=== PATIENT | female | born 1960 | race Caucasian/White ===

== ENCOUNTER 2016-07-30 03:08 | Inpatient (IN) | payer OTHER ==
[~2016-07-30] VITALS: Ht 162.6 cm; Wt 53.0 kg
[~2016-07-30 03:08] MED LIST: ATOR40TA68 PO; CHLO25CA9 PO; FER325 PO; FLUO20CA22 PO; HYD25 PO; TRAZ100T15 PO
[2016-07-30] MEDS ORDERED: ASPIRIN 325 MG TAB PO STA (03:50)
[2016-07-30 04:13] LABS: ADD SCAN DIFF NO
[2016-07-30 04:16] LABS: BASOPHIL # 0.1 10^3/ul (0.0-0.1); BASOPHILS % 2.1 % (0.0-2.0); EOSINOPHILS # 0.5 10^3/ul (0.0-0.5); HEMOGLOBIN 11.8 g/dl (12.0-16.0); LYMPHOCYTES # 2.2 10^3/ul (0.8-2.9); MEAN CORPUSCULAR HEMOGLOBIN 28.1 pg (29.0-33.0); MEAN CORPUSCULAR HGB CONC 33.7 g/dl (32.0-37.0); MEAN CORPUSCULAR VOLUME 83.3 fl (82.0-101.0); MEAN PLATELET VOLUME 10.4 fl (7.4-10.4); MONOCYTE # 0.5 10^3/ul (0.3-0.9); MONOCYTES % 7.9 % (0.0-11.0); NEUTROPHIL # 2.6 10^3/ul (1.6-7.5); NEUTROPHILS % 43.8 % (39.0-77.0); PLATELET COUNT 181 10^3/UL (140-415); RED CELL DISTRIBUTION WIDTH 20.3 % (11.5-14.5); WHITE BLOOD COUNT 5.8 10^3/ul (4.8-10.8)
--- NOTE | 2016-07-30 04:20 | RADRPT ---
PROCEDURE: Chest. CLINICAL INDICATION: Chest pain. TECHNIQUE: Single frontal view of the chest was obtained. COMPARISON: None. FINDINGS: The cardiac silhouette is magnified. The aortic arch is unremarkable. There is a nodular density wi thin the right upper lobe measuring 13 x 8 mm. There is no focal consolidation, vascular congestion or pleural effusion. There is no pneumothorax. IMPRESSION: Right upper lobe 13 x 8 mm nodular density. Further evaluation by CT chest is recommended. .Augustus Perez MD, MD Date Time Electronically viewed and signed by .Augustus Perez MD, on 07/30/2016 04:20 .T/
[2016-07-30 04:37] LABS: CHLORIDE 100 mmol/L (97-110); POTASSIUM 3.2 mmol/L (3.5-5.1); SODIUM 148 mmol/L (135-144)
[2016-07-30 04:40] LABS: ANION GAP 25 (8-16); BLOOD UREA NITROGEN 11 mg/dl (7-20); CARBON DIOXIDE 26 mmol/L (21-31); CREATININE 0.43 mg/dl (0.44-1.00); GLUCOSE 100 mg/dl (70-220)
[2016-07-30 04:41] LABS: INR 0.98
[2016-07-30 04:42] LABS: PARTIAL THROMBOPLASTIN TIME 29.3 Sec (25.0-35.0)
[2016-07-30 04:48] LABS: B-TYPE NATRIURETIC PEPTIDE 73 PG/ML (0-125)
[2016-07-30 04:54] LABS: TROPONIN-I < 0.012 ng/ml (0.00-0.12)
[2016-07-30] MEDS ORDERED: LIDOCAINE/MYLANTA 40 ML BTL PO ONE (05:00)
[2016-07-30] MEDS ORDERED: SOD CHLORIDE 0.9% 1,000 ML IV ONE (05:00)
[2016-07-30] MEDS ORDERED: POTASSIUM CHLORIDE (SR) 20 MEQ TAB PO STA (05:23)
[2016-07-30] MEDS ORDERED: NITROGLYCERIN (SL) 0.4 MG TAB SL ONE ×2 (05:30→06:00)
--- NOTE | 2016-07-30 06:13 | ERA ---
ER Documentation Chief Complaint Date/Time DATE: 07/30/16 TIME: 06:10 Chief Complaint Chest pain started at 0130. Radiating to the arms HPI 55-year-old female presents with left-sided pressure-like chest pain that awoke her from sleep at 01 30. Pain radiates down her left arm. She also has shortness of breath. She denies any nausea. States that she has not had pain like this. In the past she has had chest pain that was less than this resolved on palpation. States that his pain is much worse. She knows she has hypertension but is not sure if she has cholesterol diabetes because she does not see doctors. She has never had a cardiac workup of any kind. She has not tried taking anything for the pain. ROS All systems reviewed and are negative except as per history of present illness. Medications Home Meds Active Scripts Chlordiazepoxide* (Chlordiazepoxide*) 25 Mg Capsule, 25 MG PO Q8 Y for CONTROL WITHDRAWAL SYMPTOMS, #15 CAP Prov:LIOC RIDDLE MD 11/19/15 Reported Medications Atorvastatin* (Atorvastatin*) 40 Mg Tablet, 40 MG PO QHS, #30 TAB 11/19/15 Hydrochlorothiazide* (Hydrochlorothiazide*) 25 Mg Tab, 25 MG PO DAILY, #30 TAB 11/19/15 Ferrous Sulfate* (Ferrous Sulfate*) 325 Mg Tabec, 325 MG PO DAILY, TAB 11/19/15 Trazodone Hcl* (Trazodone Hcl*) 100 Mg Tablet, 100 MG PO QHS, #30 TAB 11/19/15 Fluoxetine Hcl* (Fluoxetine Hcl*) 20 Mg Capsule, 20 MG PO TID, CAP 11/19/15 Allergies Allergies: Coded Allergies: No Known Allergy (Unverified , 11/19/15) PMhx/Soc Medical and Surgical Hx: pt denies Surgical Hx History of Surgery: No Anesthesia Reaction: No Hx Neurological Disorder: No Hx Respiratory Disorders: No Hx Cardiac Disorders: Yes (HTN, HYPERLIPEDEMIA) Hx Psychiatric Problems: Yes (DEPRESSION, HALLUCINATIONS) Hx Miscellaneous Medical Probl: Yes (EtOH abuse, non-compliance) Hx Alcohol Use: Yes ("a few beers every weekend") Hx Substance Use: No Hx Tobacco Use: No Smoking Status: Never smoker Physical Exam Vitals Vital Signs Date Time Temp Pulse Resp B/P Pulse Ox O2 Delivery O2 Flow Rate FiO2 07/30/16 05:32 87 22 115/90 100 Nasal Cannula 2.0 07/30/16 04:07 80 22 125/80 100 Nasal Cannula 2.0 07/30/16 04:07 Nasal Cannula 2 07/30/16 03:14 98.6 94 20 145/95 96 Physical Exam Const: [] Mild distress, appears uncomfortable holding left chest Head: Atraumatic Eyes: Normal Conjunctiva ENT: Normal External Ears, Nose and Mouth. Neck: Full range of motion..~ No meningismus. Resp: Clear to auscultation bilaterally Cardio: Regular rate and rhythm, no murmurs Abd: Soft, non tender, non distended. Normal bowel sounds Skin: No petechiae or rashes Ext: No cyanosis, or edema Neur: Awake and alert and oriented 3, no focal deficits Psych: Normal Mood and Affect Result Diagram: 07/30/16 0345 07/30/16 0356 Results 24 hrs Laboratory Tests Test 07/30/16 03:45 07/30/16 03:56 White Blood Count 5.810^3/ul Red Blood Count 4.2010^6/ul Hemoglobin 11.8g/dl Hematocrit 35.0% Mean Corpuscular Volume 83.3fl Mean Corpuscular Hemoglobin 28.1pg Mean Corpuscular Hemoglobin Concent 33.7g/dl Red Cell Distribution Width 20.3% Platelet Count 58597^3/UL Mean Platelet Volume 10.4fl Neutrophils % 43.8% Lymphocytes % 38.0% Monocytes % 7.9% Eosinophils % 8.0% Basophils % 2.1% Nucleated Red Blood Cells % 0.0/100WBC Neutrophils # 2.610^3/ul Lymphocytes # 2.210^3/ul Monocytes # 0.510^3/ul Eosinophils # 0.510^3/ul Basophils # 0.110^3/ul Nucleated Red Blood Cells # 0.010^3/ul Prothrombin Time 13.0Sec Prothrombin Time Ratio 1.0 INR International Normalized Ratio 0.98 Activated Partial Thromboplast Time 29.3Sec Sodium Level 148mmol/L Potassium Level 3.2mmol/L Chloride Level 100mmol/L Carbon Dioxide Level 26mmol/L Anion Gap 25 Blood Urea Nitrogen 11mg/dl Creatinine 0.43mg/dl Glucose Level 100mg/dl Calcium Level 10.0mg/dl Troponin I < 0.012ng/ml B-Type Natriuretic Peptide 73PG/ML Current Medications Medications (Trade) Dose Ordered Sig/Jessa Route PRN Reason Start Time Stop Time Status Last Admin Dose Admin Aspirin (Aspirin) 325 mg ONCE STAT PO 07/30/16 03:50 07/30/16 03:51 DC 07/30/16 03:57 Miscellaneous Medication 40 ml 40 ml ONCE ONCE PO 07/30/16 05:00 07/30/16 05:01 DC 07/30/16 04:49 Sodium Chloride (NS) 1,000 ml @ 1,000 mls/hr Q1H ONCE IV 07/30/16 05:00 07/30/16 05:59 DC 07/30/16 04:50 Nitroglycerin (Nitroglycerin (Sl Tab) 0.4 Mg) 1 tab ONCE ONCE SL 07/30/16 05:30 07/30/16 05:31 DC 07/30/16 05:31 Potassium Chloride (Klor-Con 20) 40 meq ONCE STAT PO 07/30/16 05:23 07/30/16 05:27 DC 07/30/16 05:30 Nitroglycerin (Nitroglycerin (Sl Tab) 0.4 Mg) 1 tab ONCE ONCE SL 07/30/16 06:00 07/30/16 06:01 DC 07/30/16 05:53 Procedures/MDM Chest pain with concern for acute coronary syndrome. Although EKG is nonischemic patient has a negative troponin she has a different type of chest pain she has ever had that radiates down her left arm and was only lessened by nitroglycerin. First night she took the pain down to a 7 the next 1 to get down to a 3 though she does have ongoing chest pain I believe she would benefit from a admission for further cardiac testing as she believes she is unlikely to follow-up as an outpatient because she does not like doctors. Spoke with Dr. Santo, who will admit the patient for observation cardiac rule out. EKG interpretation: Normal sinus rhythm rate of 87, normal axis, no ST or T- wave changes concerning for acute ischemia, normal intervals gas operator interpretation: Normal sinus rhythm without arrhythmia Chest x-ray interpretation: I see no acute process, no widened mediastinum, no pneumothorax, no infiltrates, no fractures Departure Diagnosis: Primary Impression: Chest pain Condition: Stable ERICKPRADIP DO July 30, 2016 06:13
[2016-07-30] MEDS ORDERED: ACETAMINOPHEN 325 MG TAB PO PRN (06:30)
[2016-07-30] MEDS ORDERED: ONDANSETRON 4 MG INJ IV PRN (06:30)
[2016-07-30] MEDS ORDERED: NITROGLYCERIN (SL) 0.4 MG TAB SL PRN ×2 (08:30)
[2016-07-30] MEDS ORDERED: LORAZEPAM 2 MG INJ IV PRN (08:30)
[2016-07-30] MEDS ORDERED: NACL 0.9% 3 ML SYG IV SCH (08:30)
[2016-07-30] MEDS: ACETAMINOPHEN 325 MG TAB PO PRN ×2 (09:10→20:22)
[2016-07-30 11:09] LABS: CREATINE KINASE 67 IU/L (23-200)
[2016-07-30 11:32] LABS: TROPONIN-I < 0.012 ng/ml (0.00-0.12)
[2016-07-30] MEDS: ASPIRIN 81 MG TAB PO SCH (14:18)
[2016-07-30 16:22] LABS: CREATINE KINASE 75 IU/L (23-200)
[2016-07-30 16:28] LABS: CK-MB 0.59 ng/ml (0.0-2.4)
[2016-07-30 16:32] LABS: TROPONIN-I < 0.012 ng/ml (0.00-0.12)
[2016-07-30 17:59] VITALS: TEMP 98.2
[2016-07-30 18:22] VITALS: PULSE 80
[2016-07-30 18:27] VITALS: Ht 162.6 cm; Wt 53.0 kg
[2016-07-30 18:33] VITALS: BP 148/100; PULSE 78
[2016-07-30] MEDS: morphine 2 MG INJ IV PRN (18:56)
[2016-07-30 20:23] VITALS: PULSE 85
[2016-07-30 20:47] VITALS: BP 128/83; RESP 16
[2016-07-31] VITALS (10 sets, daily range): BP systolic 110–153; BP diastolic 65–88; PULSE 75–90; RESP 16
--- NOTE | 2016-07-31 06:56 | CONS ---
DATE OF ADMISSION: 07/30/2016 DATE OF CONSULTATION: 07/30/2016 CARDIOLOGY CONSULTATION REFERRING PHYSICIAN: ____ REASON FOR CONSULTATION: Chest pain. CHIEF COMPLAINT: Chest pain. HISTORY OF PRESENT ILLNESS: Thank you for this referral. History obtained from the patient, josef santo with ____. A 55-year-old female with history of hypertension, noncompliance, depression, t aking no cardiac medications, who presented with above complaint. Patient has had on and off chest pain, left-sided, for a while, but last night got worse, severe left-sided pressure-like. She point s to around her shoulder but going also to the left side of the chest. The pain has improved now, h as not resolved completely now. Troponin have been negative x2. PAST MEDICAL HISTORY: History of hypertension, possible dyslipidemia, history of depression. SOCIAL HISTORY: Patient denies active tobacco or drug abuse to me. FAMILY HISTORY: No reported coronary artery disease. ALLERGIES: NO REPORTED ALLERGIES. MEDICATIONS AT HOME: She takes "some depression medication," otherwise, does not take any blood pre ssure medication. REVIEW OF SYSTEMS: As above mentioned. PHYSICAL EXAMINATION: VITAL SIGNS: Temperature 98.6, heart rate 85, blood pressure ____/100, respiration rate of 16, satu rating 98%. HEENT: Normocephalic, atraumatic. Pupils are equal. CARDIOVASCULAR: Regular rate and rhythm, systolic murmur. PULMONARY: With no wheezes and rhonchi. GASTROINTESTINAL: Soft, nontender. EXTREMITIES: No cyanosis, clubbing ____. NEUROLOGIC: Awake and alert, oriented x3. PSYCHIATRIC: Appeared to be calm now. LABORATORY: Troponin has been negative x2. WBC of 5.8, hemoglobin 11.8, platelet 181, sodium 148, potassium 3.2, BUN of 11, creatinine 0.42, glucose 100. BNP of 73. Chest x-ray was right upper lob e nodular density, further evaluation by CTA is recommended. EKG was personally reviewed, she is normal sinus rhythm with nonspecific ST abnormality anterior carlos ds. ASSESSMENT AND PLAN 1. Chest pain syndrome, rule acute coronary syndrome. 2. Hypertension, poorly controlled secondary to noncompliance. 3. Rule out dyslipidemia. 4. History of depression. 5. Pulmonary nodule. RECOMMENDATIONS: Echocardiogram will be obtained today. Serial cardiac enzymes will be monitored. The patient has been already given aspirin. I will start the patient on Coreg. I have ordered Sherwin iscan stress test for tomorrow to rule out significant obstructive coronary artery if cardiac enzyme s become repeatedly negative. Dr. Reaves will follow the patient tomorrow from a cardiac standpoint . Dictated By: MIKE HUGHES MD AV/NTS Conf#: [id number] DID#: [id number] CC: OTF LOMAX MD;*EndCC*
--- NOTE | 2016-07-31 07:01 | HP ---
DATE OF ADMISSION: 07/30/2016 CHIEF COMPLAINT: Chest pain. HISTORY OF PRESENT ILLNESS: A 55-year-old female with history of hypertension, presents to emergenc y room with complaint of left sided chest pressure radiating to the left arm since 9:00 in the [facility] prior to admission. Pain was 8/10 and lasted for about 5 hours. She reports associated shortnes s of breath and ____. No vomiting. She had some diaphoresis. The patient denies exertional sympto ms. Pain was relieved following nitroglycerin in the emergency room. Initial troponin and EKG were unremarkable. The patient is scared of physicians and hospital. She has seen any physician as outpatient. She ap peared anxious at the time of my visit. PAST MEDICAL HISTORY: Hypertension. MEDICATIONS PRIOR TO ADMISSION: None. SOCIAL HISTORY: The patient lives at home. She denies tobacco or alcohol use. PHYSICAL EXAMINATION: GENERAL: Well developed and nourished female who is in no apparent distress. VITAL SIGNS: Stable. She is afebrile. HEENT: Extraocular muscles intact. Pupils equal and reactive to light bilaterally. Sclerae anicte cinthya. Oropharynx is clear and moist. NECK: Supple. No JVD, no carotid bruits. LUNGS: Clear to auscultation bilaterally. CARDIAC: Regular rate and rhythm. No murmurs or gallops. CHEST: Nontender to palpation. ABDOMEN: Soft, nontender, nondistended. Normoactive bowel sounds. EXTREMITIES: No clubbing, cyanosis, or edema. NEUROLOGIC: Nonfocal. LABORATORY DATA: White blood cell count 5.8, hemoglobin 11.8, platelet count is 181,000. Potassium is low at 3.2. Troponins are less than 0.012 x2. ASSESSMENT: A 55-year-old female with acute chest pain. There are typical and atypical components to the pain. The decision was made to admit the patient to observation since she may not follow up with cardiology as outpatient. PLAN: 1. Place on tele observation. 2. Serial troponins. 3. Sublingual nitroglycerin as needed. 4. Cardiology consultation was requested and case was discussed with Dr. Erickson. 5. Proceed with stress Lexiscan in a.m. 6. DVT prophylaxis. Dictated By: OTF KIM/BROCK Conf#: [id number] [facility]#: [id number]
[2016-07-31] MEDS: ASPIRIN 81 MG TAB PO SCH (08:04)
[2016-07-31] MEDS: morphine 2 MG INJ IV PRN (08:36)
[2016-07-31 09:38] LABS: ADD SCAN DIFF NO
[2016-07-31 09:40] LABS: BASOPHIL # 0.1 10^3/ul (0.0-0.1); BASOPHILS % 1.5 % (0.0-2.0); EOSINOPHILS # 0.5 10^3/ul (0.0-0.5); EOSINOPHILS % 7.8 % (0.0-7.0); HEMATOCRIT 33.9 % (37.0-47.0); HEMOGLOBIN 10.9 g/dl (12.0-16.0); LYMPHOCYTES # 1.2 10^3/ul (0.8-2.9); LYMPHOCYTES % 20.7 % (15.0-51.0); MEAN CORPUSCULAR HEMOGLOBIN 27.3 pg (29.0-33.0); MEAN CORPUSCULAR HGB CONC 32.2 g/dl (32.0-37.0); MEAN CORPUSCULAR VOLUME 84.8 fl (82.0-101.0); MEAN PLATELET VOLUME 9.7 fl (7.4-10.4); MONOCYTE # 0.8 10^3/ul (0.3-0.9); MONOCYTES % 13.4 % (0.0-11.0); NEUTROPHIL # 3.3 10^3/ul (1.6-7.5); NEUTROPHILS % 56.4 % (39.0-77.0); PLATELET COUNT 175 10^3/UL (140-415); RED CELL DISTRIBUTION WIDTH 20.6 % (11.5-14.5); WHITE BLOOD COUNT 5.9 10^3/ul (4.8-10.8)
[2016-07-31 10:15] LABS: CREATINE KINASE 56 IU/L (23-200)
[2016-07-31 10:17] LABS: ALBUMIN 4.4 g/dl (3.3-4.9); ALBUMIN/GLOBULIN RATIO 1.37; BILIRUBIN,INDIRECT 0.2 mg/dl (0-1.1); BILIRUBIN,TOTAL 0.2 mg/dl (0.2-1.3); CALCIUM 9.8 mg/dl (8.4-10.2); CREATININE 0.4 mg/dl (0.44-1.00); POTASSIUM 3.5 mmol/L (3.5-5.1); TOTAL PROTEIN 7.6 g/dl (6.1-8.1)
[2016-07-31 10:38] LABS: CHOL/HDL RATIO 3.1 RATIO
[2016-07-31 10:39] LABS: TROPONIN-I < 0.012 ng/ml (0.00-0.12)
--- NOTE | 2016-07-31 11:24 | PN ---
Date/Time of Note Date/Time of Note DATE: 07/31/16 TIME: 11:11 Assessment/Plan VTE Prophylaxis VTE Prophylaxis Intervention: SCD's Lines/Catheters IV Catheter Type (from Nrsg): Saline Lock Assessment/Plan Assessment/Plan 55-year-old female with: 1. Chest pain, likely atypical Cardiac enzymes negative x 4, 2D echo done and reading pending. Bblock, BP control, statins resumed Stress test pending this AM, if negative d/c plan home 2. Hypertension: start B block today, further recs per Cardio post stress test 3. Hyperlipidemia: resume Lipitor 4. MDD: resume home meds at discharge 5. RUL pulmonary Nodule: CT chest non con pending. Prophylaxis: SCDs and tolerating po. Disposition: Stress test today and d/c plan pending results Subjective 24 Hr Interval Summary Free Text/Dictation Patient doing well No chest pain and awaiting stress test this AM CT Chest to evaluate RUL lesion Exam/Review of Systems Vital Signs Vitals Vital Signs Date Time Temp Pulse Resp B/P Pulse Ox O2 Delivery O2 Flow Rate FiO2 07/31/16 11:06 98.0 83 16 153/86 97 07/30/16 18:33 Room Air 07/30/16 13:28 2.0 Intake and Output 07/30/16 07/30/16 07/31/16 14:59 22:59 06:59 Intake Total 400 ml Balance 400 ml Exam Constitutional: alert, oriented, well developed Cardiovascular: nl pulses, regular rate and rhythm Gastrointestinal: non-tender, soft Musculoskeletal: nl extremities to inspection Extremities: normal pulses, other (no edema, clubbing or cyanosis ) Neurological: NURSE INFORMATICS EDUCATOR II-XII intact, nl mental status, nl speech, nl strength Results Result Diagram: 07/31/1618 07/31/1618 Results 24 hrs Laboratory Tests Test 07/30/16 15:50 07/31/16 09:18 Creatine Kinase 75 56 Creatine Kinase Index 0.8 0.7 Creatinine Kinase MB (Mass) 0.59 0.40 Troponin I < 0.012 < 0.012 White Blood Count 5.9 Red Blood Count 4.00 L Hemoglobin 10.9 L Hematocrit 33.9 L Mean Corpuscular Volume 84.8 Mean Corpuscular Hemoglobin 27.3 L Mean Corpuscular Hemoglobin Concent 32.2 Red Cell Distribution Width 20.6 H Platelet Count 175 Mean Platelet Volume 9.7 Neutrophils % 56.4 Lymphocytes % 20.7 Monocytes % 13.4 H Eosinophils % 7.8 H Basophils % 1.5 Nucleated Red Blood Cells % 0.0 Neutrophils # 3.3 Lymphocytes # 1.2 Monocytes # 0.8 Eosinophils # 0.5 Basophils # 0.1 Nucleated Red Blood Cells # 0.0 Sodium Level 139 Potassium Level 3.5 Chloride Level 101 Carbon Dioxide Level 26 Anion Gap 16 # Blood Urea Nitrogen 9 Creatinine 0.40 L Glucose Level 94 Calcium Level 9.8 Total Bilirubin 0.2 Direct Bilirubin 0.00 Indirect Bilirubin 0.2 Aspartate Amino Transf (AST/SGOT) 72 H Alanine Aminotransferase (ALT/SGPT) 48 Alkaline Phosphatase 145 H Total Protein 7.6 Albumin 4.4 Globulin 3.20 Albumin/Globulin Ratio 1.37 Triglycerides Level 95 Cholesterol Level 332 H LDL Cholesterol, Calculated 208 HDL Cholesterol 105 H Cholesterol/HDL Ratio 3.1 Medications Medications Current Medications Lorazepam (Ativan) 0.5 mg Q6H PRN IV ANXIETY; Start 07/30/16 at 08:30 Aspirin (Aspirin) 81 mg DAILY PO Last administered on 07/30/16 14:18; Admin Dose 81 MG; Start 07/30/16 at 09:00 Nitroglycerin (Nitroglycerin (Sl Tab) 0.4 Mg) 1 tab Q5M PRN SL CHEST PAIN; Start 07/30/16 at 08:30 Acetaminophen (Tylenol Tab) 650 mg Q6H PRN PO PAIN LEVEL 1-3 OR FEVER Last administered on 07/30/16 20:22; Admin Dose 650 MG; Start 07/30/16 at 08:30 Morphine Sulfate (morphine) 2 mg Q4H PRN IV PAIN LEVEL 7-10 Last administered on 07/31/16 08:36; Admin Dose 2 MG; Start 07/30/16 at 08:30 JUANCARLOS HEIN July 31, 2016 11:21
[2016-07-31] MEDS ORDERED: METOPROLOL 25 MG TAB PO SCH (11:30)
[2016-07-31] MEDS ORDERED: REGADENOSON 0.4 MG/5 ML SYG ONE (13:28)
--- NOTE | 2016-07-31 14:01 | RADRPT ---
Echocardiogram Report Patient Name: HERI BURTON Gender: Female Date: 1960 Study Date: 30-Jul-2016 Beam Department Supervisor: Patt [facility] Location: [facility] Ref. Physician: MIKE HUGHES Quality: Adequate Procedures: Transthoracic echocardiogram with complete 2D, M-Mode, and doppler examination. Indications: Chest Pain. 2D/M Mode Doppler Measurement Value Normal Ranges Measurement Value Normal Ranges LVIDd 2D 4.0 3.5 - 5.6 cm AV Peak Adam 1.2 m/sec LVIDs 2D 2.6 2.1 - 4.1 cm AV Peak PG 6.0 mmHg LVPWd 2D 1.0 0.6 - 1.1 cm LVOT Peak Adam 0.9 m/sec IVSd 2D 1.0 0.6 - 1.1 cm LVOT Peak PG 3.0 mmHg AoR Diam 2D 2.3 2.0 - 3.7 cm MV E Peak Adam 0.7 m/sec EDV 2D 69.2 cm3 MV A Peak Adam 0.9 m/sec ESV 2D 18.4 cm3 MV E/A 0.8 LA Dimen 2D 4.2 2.3 - 4.0 cm MV Decel Time 183 msec MV Decel [place] 4 MV E/A 0.8 TR Peak Adam 2.8 m/sec TR Peak PG 31.5 mmHg RVSP 40.0 mmHg Findings Left Ventricle: Normal left ventricular systolic function. Normal left ventricular cavity size. Normal left ventricular wall thickness. Ejection fraction is visually estimated at 60 %. Tissue Doppler/Mitral Doppler indices are consistent with impaired relaxation (Stage I diastolic dysfunction). Right Ventricle: Normal right ventricular size. Normal right ventricular systolic function. Left Atrium: There is mild enlargement of left atrium. Right Atrium: Right atrium at upper limits of normal. Mitral Valve: Mild mitral leaflet calcification. Mild mitral annular calcification. Trace mitral regurgitation. Aortic Valve: Normal appearance of the aortic valve. No significant aortic stenosis or insufficiency. Tricuspid Valve: Normal appearance and function of the tricuspid valve with trace physiologic regurgitation. Estimated peak PA systolic pressure 40 mmHg. Pulmonic Valve: Pulmonic valve not well visualized. There is trace pulmonic regurgitation. Pericardium: Normal pericardium with no significant pericardial effusion. Aorta: Normal aortic root. IVC: Dilated IVC with respiratory collapse consistent with elevated right atrial pressure. Conclusions 1.Normal left ventricular systolic function. Normal left ventricular cavity size. Normal left ventricular wall thickness. Ejection fraction is visually estimated at 60 %. Tissue Doppler/Mitral Doppler indices are consistent with impaired relaxation (Stage I diastolic dysfunction). 2.Normal right ventricular size. Normal right ventricular systolic function. 3.There is mild enlargement of left atrium. 4.Right atrium at upper limits of normal. 5.No significant valvular stenosis or regurgitation seen. 6.Normal pericardium with no significant pericardial effusion. Electronically Signed By: Ethan Reaves 31-Jul-2016 14:00:00 Patient Name: HERI UBRTON Study Date: 30-Jul-2016 [id number]
--- NOTE | 2016-07-31 14:10 | PDOCDIS ---
Discharge Instructions CONDITION Patient Condition: Stable HOME CARE INSTRUCTIONS: Special Diet: cardiac ACTIVITY: Activity Restrictions: No Restrictions FOLLOW UP/APPOINTMENTS Appointments Follow up with PCP within 1 week Follow up with Cardiology within 2 to [address] chest non contrast to monitor RUL small nodules in 6 months JUANCARLOS HEIN July 31, 2016 14:10
[2016-07-31] MEDS ORDERED: METO-448 PO (14:11)
--- NOTE | 2016-07-31 16:19 | RADRPT ---
PROCEDURE: Lexiscan myocardial perfusion study CLINICAL INDICATION: 55 -year-old patient complaining of chest pain. TECHNIQUE: Lexiscan 0.4 mg intravenously separate acquisition gated myocardial perfusion SPECT usi ng Tc 99m Myoview 27.2 mCi intravenously at stress and Tc-99m Myoview, 9.5 mCi intravenously at rest was performed using the rest/stress sequence. Poststress Myoview SPECT images were obtained in the supine position. COMPARISON: No prior studies. FINDINGS: Perfusion images reveal a small size mild in degree reversible perfusion abnormality in the distal i nferior wall. Lexiscan post stress gated SPECT images demonstrate no wall motion abnormalities. IMPRESSION: 1. The type and distribution of the scintigraphic abnormalities are most consistent with a small re versible perfusion defect in the distal inferior wall. 2. No wall motion abnormalities. 3. The left ventricle ejection fraction at stress is greater than 70%. A call report was made to Dr. Reaves at 04:16 p.m. on July 31, 2016. RPTAT: HH .Sosa Floyd MD, MD Date Time Electronically viewed and signed by .Sosa Floyd MD, MD on 07/31/2016 16:19 .L/
--- NOTE | 2016-07-31 16:45 | CONS ---
Date/Time of Note Date/Time of Note DATE: 07/31/16 TIME: 16:42 Assessment/Plan Assessment/Plan Additional Assessment/Plan Chest and shoulder pain Preserved ejection fraction Hypertension Dyslipidemia -Patient with pain elicited with left arm movements. Pain is not exacerbated by exertion. Patient denies any further symptoms. Serial cardiac enzymes are negative. Nuclear stress test with possible small distal inferior area of ischemia. Would recommend aggressive medical management with aspirin, statin and beta-jesús as heart rate and blood pressure permits. Consultation Date/Type/Reason Admit Date/Time July 30, 2016 at 06:09 Initial Consult Date Type of Consultation: cv 24 HR Interval Summary Free Text/Dictation Denies any further symptoms of chest pain. Denies shortness of breath, dizziness. Chest pain was in shoulder which brought patient to hospital. Pain exacerbated with arm movements Exam/Review of Systems Vital Signs Vitals Vital Signs Date Time Temp Pulse Resp B/P Pulse Ox O2 Delivery O2 Flow Rate FiO2 07/31/16 16:23 76 07/31/16 15:50 97.8 16 139/88 96 07/30/16 18:33 Room Air 07/30/16 13:28 2.0 Intake and Output 07/30/16 07/30/16 07/31/16 15:00 23:00 07:00 Intake Total 400 ml Balance 400 ml Exam No apparent distress Constitutional: alert, oriented Head: normocephalic Neck: supple Respiratory: other (Coarse breath sounds bilaterally, no wheezing) Cardiovascular: other (S1-S2 heard), regular rate and rhythm Gastrointestinal: bowel sounds, non-tender, soft Extremities: other (No edema) Results Result Diagram: 07/31/1618 07/31/1618 Results 24 hrs Laboratory Tests Test 07/31/16 09:18 White Blood Count 5.9 Red Blood Count 4.00 L Hemoglobin 10.9 L Hematocrit 33.9 L Mean Corpuscular Volume 84.8 Mean Corpuscular Hemoglobin 27.3 L Mean Corpuscular Hemoglobin Concent 32.2 Red Cell Distribution Width 20.6 H Platelet Count 175 Mean Platelet Volume 9.7 Neutrophils % 56.4 Lymphocytes % 20.7 Monocytes % 13.4 H Eosinophils % 7.8 H Basophils % 1.5 Nucleated Red Blood Cells % 0.0 Neutrophils # 3.3 Lymphocytes # 1.2 Monocytes # 0.8 Eosinophils # 0.5 Basophils # 0.1 Nucleated Red Blood Cells # 0.0 Sodium Level 139 Potassium Level 3.5 Chloride Level 101 Carbon Dioxide Level 26 Anion Gap 16 # Blood Urea Nitrogen 9 Creatinine 0.40 L Glucose Level 94 Calcium Level 9.8 Total Bilirubin 0.2 Direct Bilirubin 0.00 Indirect Bilirubin 0.2 Aspartate Amino Transf (AST/SGOT) 72 H Alanine Aminotransferase (ALT/SGPT) 48 Alkaline Phosphatase 145 H Creatine Kinase 56 Creatine Kinase Index 0.7 Creatinine Kinase MB (Mass) 0.40 Troponin I < 0.012 Total Protein 7.6 Albumin 4.4 Globulin 3.20 Albumin/Globulin Ratio 1.37 Triglycerides Level 95 Cholesterol Level 332 H LDL Cholesterol, Calculated 208 HDL Cholesterol 105 H Cholesterol/HDL Ratio 3.1 Medications Medications Current Medications Lorazepam (Ativan) 0.5 mg Q6H PRN IV ANXIETY; Start 07/30/16 at 08:30 Aspirin (Aspirin) 81 mg DAILY PO Last administered on 07/30/16 14:18; Admin Dose 81 MG; Start 07/30/16 at 09:00 Nitroglycerin (Nitroglycerin (Sl Tab) 0.4 Mg) 1 tab Q5M PRN SL CHEST PAIN; Start 07/30/16 at 08:30 Acetaminophen (Tylenol Tab) 650 mg Q6H PRN PO PAIN LEVEL 1-3 OR FEVER Last administered on 07/30/16 20:22; Admin Dose 650 MG; Start 07/30/16 at 08:30 Morphine Sulfate (morphine) 2 mg Q4H PRN IV PAIN LEVEL 7-10 Last administered on 07/31/16 08:36; Admin Dose 2 MG; Start 07/30/16 at 08:30 Atorvastatin Calcium (Lipitor) 40 mg QHS PO ; Start 07/31/16 at 21:00 Ferrous Sulfate (Ferrous Sulfate (Ec)) 325 mg DAILY PO ; Start 08/01/16 at 09:00 Trazodone HCl (Desyrel) 100 mg QHS PO ; Start 07/31/16 at 21:00 Metoprolol Tartrate (Lopressor) 25 mg BID PO ; Start 07/31/16 at 11:30 Ethan Reaves DO July 31, 2016 16:45
--- NOTE | 2016-07-31 16:55 | RADRPT ---
PROCEDURE: CT Chest without contrast. CLINICAL INDICATION: Nodular density on the chest x-ray. Chest pain. TECHNIQUE: CT scan of the chest without contrast was performed on a multidetector high-resolution CT scanner. Coronal and sagittal reformatted images were obtained from the axial source images. The total exam CTDI equals 7.87 mGy and the total exam DLP equals 293.46 mGy-cm. One or more of the following dose reduction techniques were used: Automated exposure control. Adjustment of the mA and/or kV according to patient size. Use of iterative reconstruction technique. COMPARISON: Chest x-ray 07/30/2016 FINDINGS: There are several ill-defined ground-glass nodules in the posterior right upper lobe and superior s egment of the left lower lobe in keeping with infectious/inflammatory nodules. No focal opacificatio n, effusion, pneumothorax, edema, or nodules are seen. There is no pulmonary infiltrate. No mass l esion to suggest neoplasm is identified. The central tracheobronchial tree is clear. The mediastinum is unremarkable without evidence for mass or lymphadenopathy. The vascular structur es of the mediastinum are normal in course and caliber. Scattered coronary artery calcifications ar e present. The heart size is normal without evidence for pericardial thickening or effusion. The axillary regions, subpectoral regions, and supraclavicular regions are all unremarkable. Imagin g obtained through the upper abdomen reveals fatty infiltration of the liver. There are numerous vincent b centimeter calcified gallstones. The surrounding osseous structures are remarkable for degenerati ve spondylosis of the spine. No osteolytic or osteoblastic lesion is detected. IMPRESSION: 1. Several ill-defined ground-glass nodules measures up to 1 cm in the posterior right upper lobe a nd superior segment of the left lower lobe most consistent with infectious/inflammatory nodules. Re commend CT chest follow-up in 6 months to ensure resolution. 2. Scattered coronary artery calcifications. 3. Fatty liver. 4. Cholelithiasis. RPTAT: BB .Cici Queen MD, Date Time Electronically viewed and signed by .Cici Queen MD, on 07/31/2016 16:54 .O/
[2016-07-31] MEDS ORDERED: ATOR40TA68 PO (17:08)
[2016-07-31] MEDS ORDERED: ASPI-664 PO (17:08)
[2016-07-31] MEDS ORDERED: ATORVASTATIN 40 MG TAB PO SCH (21:00)
[2016-07-31] MEDS ORDERED: traZODone 100 MG TAB PO SCH (21:00)
--- NOTE | 2016-07-31 21:04 | CARRPT ---
DATE OF PROCEDURE: 07/31/2016 PROCEDURES: Lexiscan/nuclear stress test PATIENT HISTORY: This then is a 55-year-old patient who presents with chest pain. Baseline ECG demonstrates sinus rhythm at 78 beats per minute, nonspecific ST-T wave abnormalities. Baseline heart rate was 78. Baseline blood pressure was 135/87. Lexiscan was administered as per protocol. Peak heart rate was 107. Peak blood pressure was 143/88. Symptoms were abdominal discomfort, which resolved. ECG demonstrated T-wave flattening. ARRHYTHMIAS: None. ECG interpretation was nonischemic. The nuclear portion will be interpreted by our radiology colleagues. Dictated By: SYBIL AMIN/BROCK Conf#: [id number] DID#: [id number] CC: OTF LOMAX MD;*EndCC*
[2016-08-01] MEDS ORDERED: FERROUS SULFATE (EC) 325 MG TAB PO SCH (09:00)
== END 2016-07-31 18:44 | disposition home or self-care (01) | DRG 313 ==
LOC: E/R 03:08 → TEL 06:09
PROVIDERS: ADMIT Internal Medicine; ATTEND Internal Medicine
DX: R07.9 Chest pain, unspecified (principal); I10 Essential (primary) hypertension; Z91.14 Patient's other noncompliance with medication regimen; E78.5 Hyperlipidemia, unspecified; F32.9 Major depressive disorder, single episode, unspecified; R91.1 Solitary pulmonary nodule; M25.512 Pain in left shoulder
CPT/HCPCS: 36415; 71010; 71250; 78452; 80048; 80053; 80061; 82550; 82553; 83880; 84484; 85025; 85610; 85730; 93005; 93017; 93306; 96360; A9500; A9505; J2270; J2785; J7030

== ENCOUNTER 2016-09-21 12:30 | Emergency (ER) | payer OTHER ==
[~2016-09-21] VITALS: Ht 157.5 cm; Wt 52.5 kg
[~2016-09-21 12:30] MED LIST changes: +ASPI-664 PO; -CHLO25CA9 PO; -HYD25 PO; +METO-448 PO
[2016-09-21 12:32] VITALS: Ht 157.5 cm; Wt 52.5 kg
[2016-09-21] MEDS ORDERED: IBUPROFEN 800 MG TAB PO ONE (13:30)
[2016-09-21] MEDS ORDERED: IBUP-1542 PO (13:30)
--- NOTE | 2016-09-21 14:20 | ERD ---
ER Documentation Chief Complaint Date/Time DATE: 09/21/16 TIME: 14:18 Chief Complaint Complains of arm pain that radiates from the chest HPI Patient is a 56-year-old female with anxiety and hypertension who presents with chest pain. The symptoms started 12 hours ago. She says "it is always on the side". She said the pain radiates from her neck down to her left arm. She admits to drinking alcohol today and said that she had "half an ounce". The patient was admitted and had a workup for chest pain in July 2016. She does not know the name of her primary doctor. Upon review of old medical record she has multiple visits to the ER. ROS All systems reviewed and are negative except as per history of present illness. Medications Home Meds Active Scripts Ibuprofen* (Motrin*) 600 Mg Tab, 600 MG PO Q8, #30 TAB Prov:GRUPO HOUSER MD 09/21/16 Aspirin* (Aspirin* EC) 81 Mg Tablet.dr, 81 MG PO DAILY for 30 Days, TAB 3 Refills Prov:JUANCARLOS HEIN 07/31/16 Atorvastatin* (Atorvastatin*) 40 Mg Tablet, 40 MG PO QHS for 30 Days, TAB 3 Refills Prov:JUANCARLOS HEIN 07/31/16 Metoprolol Tartrate* (Lopressor*) 25 Mg Tab, 25 MG PO BID for 30 Days, TAB 3 Refills Prov:JUANCARLOS HEIN 07/31/16 Reported Medications Ferrous Sulfate* (Ferrous Sulfate*) 325 Mg Tabec, 325 MG PO DAILY, TAB 11/19/15 Trazodone Hcl* (Trazodone Hcl*) 100 Mg Tablet, 100 MG PO QHS, #30 TAB 11/19/15 Fluoxetine Hcl* (Fluoxetine Hcl*) 20 Mg Capsule, 20 MG PO TID, CAP 11/19/15 Allergies Allergies: Coded Allergies: No Known Allergy (Unverified , 09/21/16) PMhx/Soc History of Surgery: Yes (EYE SURGERY) Anesthesia Reaction: No Hx Neurological Disorder: No Hx Respiratory Disorders: No Hx Cardiac Disorders: No (HTN, HYPERLIPIDEMIA) Hx Psychiatric Problems: Yes (DEPRESSION, HALLUCINATIONS) Hx Miscellaneous Medical Probl: No Hx Alcohol Use: Yes Hx Substance Use: No Hx Tobacco Use: No FmHx Family History: No coronary disease Physical Exam Vitals Vital Signs Date Time Temp Pulse Resp B/P Pulse Ox O2 Delivery O2 Flow Rate FiO2 09/21/16 13:17 74 16 95/60 97 Room Air 09/21/16 12:32 98.3 93 20 81/52 98 Physical Exam Const: Intoxicated Head: Atraumatic Eyes: Normal Conjunctiva ENT: Normal External Ears, Nose and Mouth. Neck: Full range of motion..~ No meningismus. Resp: Clear to auscultation bilaterally Cardio: Regular rate and rhythm, no murmurs, chest wall pain with palpation Abd: Soft, non tender, non distended. Normal bowel sounds Skin: No petechiae or rashes Back: No midline or flank tenderness Ext: No cyanosis, or edema Neur: Awake but appears intoxicated Results 24 hrs Current Medications Medications (Trade) Dose Ordered Sig/Jessa Route PRN Reason Start Time Stop Time Status Last Admin Dose Admin Ibuprofen (Motrin) 800 mg ONCE ONCE PO 09/21/16 13:30 09/21/16 13:31 DC 09/21/16 13:28 Procedures/MDM EKG read by me: Rate/Rhythm: Regular rate and rhythm at a rate of 82 Intervals: Normal Impression: No evidence of ischemia or arrhythmia Chest X-ray 1V Interpreted by me: Soft Tissue: No acute abnormalities Bones: No acute abnormalities Mediastinum/Cardiac Silhouette/Lungs: No acute abnormalities Patient is a 56-year-old female who presents with chest pain. EKG and chest x- ray were negative. At this point I doubt true acute coronary syndrome, pneumonia, pneumothorax, pulmonary embolism, or aortic dissection. I believe outpatient management is appropriate and I believe this is likely musculoskeletal pain. The patient will be given ibuprofen for pain. She can return for any worsening symptoms. The patient understands the plan and is okay for discharge at this time. Departure Diagnosis: Primary Impression: Chest pain Chest pain type: unspecified Qualified Code: R07.9 - Chest pain, unspecified type Additional Impression: Alcohol intoxication Complication of substance-induced condition: uncomplicated Qualified Code: F10.120 - Alcohol intoxication, uncomplicated Patient Instructions: Chest Pain, Uncertain Cause Referrals: Your doctor Additional Instructions: Call your primary care doctor TOMORROW for an appointment during the next 1-2 days.See the doctor sooner or return here if your condition worsens before your appointment time. GRUPO HOUSER MD Sep 21, 2016 14:20
--- NOTE | 2016-09-21 14:21 | RADRPT ---
PROCEDURE: XR Chest. CLINICAL INDICATION: Chest pain. TECHNIQUE: Single frontal view. COMPARISON: 07/30/2016. FINDINGS: The lungs are clear. The heart size is normal. There is no pleural effusion. There is no pneumothorax. IMPRESSION: 1. Normal chest radiograph. RPTAT: QQ .Roberto Gonzalez MD, MD Date Time Electronically viewed and signed by .Roberto Gonzalez MD, MD on 09/21/2016 14:20 .R/
[2016-09-21 15:08] VITALS: BP 97/57; PULSE 97; RESP 18; TEMP 97.9
== END 2016-09-21 15:15 | disposition home or self-care (01) ==
LOC: E/R 12:30
DX: R07.9 Chest pain, unspecified (principal); F10.120 Alcohol abuse with intoxication, uncomplicated; I10 Essential (primary) hypertension; Z79.82 Long term (current) use of aspirin
CPT/HCPCS: 71010; 93005; Z7502; Z7610

== ENCOUNTER 2017-02-10 20:19 | Emergency (ER) | payer OTHER ==
[~2017-02-10] VITALS: Ht 165.1 cm; Wt 54.5 kg
[~2017-02-10 20:19] MED LIST changes: +IBUP-1542 PO
[2017-02-10 20:24] VITALS: Ht 165.1 cm; Wt 54.5 kg
[2017-02-10] MEDS ORDERED: MAGNESIUM SULFATE 2 GM, MULTIVITAMINS 10 ML, THIAMINE 100 MG, FOLIC ACID 1 MG in SOD CH... IV STA (20:27)
[2017-02-10 20:57] LABS: BASOPHIL # 0.2 10^3/ul (0.0-0.1); BASOPHILS % 1.8 % (0.0-2.0); EOSINOPHILS # 0.4 10^3/ul (0.0-0.5); EOSINOPHILS % 2.7 % (0.0-7.0); HEMATOCRIT 39.5 % (37.0-47.0); HEMOGLOBIN 13.4 g/dl (12.0-16.0); LYMPHOCYTES # 3.8 10^3/ul (0.8-2.9); LYMPHOCYTES % 28.7 % (15.0-51.0); MEAN CORPUSCULAR HEMOGLOBIN 31.2 pg (29.0-33.0); MEAN CORPUSCULAR HGB CONC 33.9 g/dl (32.0-37.0); MEAN CORPUSCULAR VOLUME 91.9 fl (82.0-101.0); MEAN PLATELET VOLUME 9.8 fl (7.4-10.4); MONOCYTE # 0.6 10^3/ul (0.3-0.9); MONOCYTES % 4.6 % (0.0-11.0); NEUTROPHIL # 8.1 10^3/ul (1.6-7.5); NEUTROPHILS % 61.7 % (39.0-77.0); PLATELET COUNT 470 10^3/UL (140-415); RED CELL DISTRIBUTION WIDTH 14.3 % (11.5-14.5); WHITE BLOOD COUNT 13.1 10^3/ul (4.8-10.8)
[2017-02-10 21:10] LABS: INR 0.91; PARTIAL THROMBOPLASTIN TIME 29.2 Sec (25.0-35.0); PROTIME 12.3 Sec (11.9-14.9)
[2017-02-10 21:14] LABS: ALANINE AMINOTRANSFERASE 68 IU/L (13-69); ALBUMIN 4.8 g/dl (3.3-4.9); ALBUMIN/GLOBULIN RATIO 1.23; ALKALINE PHOSPHATASE 178 IU/L (42-121); ANION GAP 23 (8-16); ASPARTATE AMINO TRANSFERASE 100 IU/L (15-46); BLOOD UREA NITROGEN 16 mg/dl (7-20); CALCIUM 9.8 mg/dl (8.4-10.2); CARBON DIOXIDE 26 mmol/L (21-31); CHLORIDE 102 mmol/L (97-110); CREATININE 0.61 mg/dl (0.44-1.00); GLUCOSE 106 mg/dl (70-220); POTASSIUM 3.4 mmol/L (3.5-5.1); SODIUM 148 mmol/L (135-144); TOTAL PROTEIN 8.7 g/dl (6.1-8.1)
[2017-02-10 21:26] LABS: ACETAMINOPHEN < 10.0 ug/ml (10.0-30.0); SALICYLATE < 1.0 mg/dl (5.0-30.0)
--- NOTE | 2017-02-10 23:53 | ERD ---
ER Documentation Chief Complaint Chief Complaint RAUL DONALDSON,ETOH intoxication HPI This is a 56-year-old female with a remote history of alcoholism which she states she recently relapsed from. The patient was brought in by [facility] after she was found sleeping underneath a truck. There is no signs of trauma or drug paraphernalia. The patient states she relapsed and had consumed a significant amount of alcohol over the past 24 hours. She states she drinks to ease the pain from the loss of her son staff. She states however she has no chest pain or pressure. She denies a headache. She denies any neck pain. She denies any hemoptysis hematemesis or melanotic stools. Denies any suicidal homicidal thoughts or ideations. ROS All systems reviewed and are negative except as per history of present illness. Medications Home Meds Active Scripts Ibuprofen* (Motrin*) 600 Mg Tab, 600 MG PO Q8, #30 TAB Prov:GRUPO HOUSER MD 09/21/16 Aspirin* (Aspirin* EC) 81 Mg Tablet.dr, 81 MG PO DAILY for 30 Days, TAB 3 Refills Prov:JUANCARLOS HEIN 07/31/16 Atorvastatin* (Atorvastatin*) 40 Mg Tablet, 40 MG PO QHS for 30 Days, TAB 3 Refills Prov:JUANCARLOS HEIN 07/31/16 Metoprolol Tartrate* (Lopressor*) 25 Mg Tab, 25 MG PO BID for 30 Days, TAB 3 Refills Prov:JUANCARLOS HEIN 07/31/16 Reported Medications Ferrous Sulfate* (Ferrous Sulfate*) 325 Mg Tabec, 325 MG PO DAILY, TAB 11/19/15 Trazodone Hcl* (Trazodone Hcl*) 100 Mg Tablet, 100 MG PO QHS, #30 TAB 11/19/15 Fluoxetine Hcl* (Fluoxetine Hcl*) 20 Mg Capsule, 20 MG PO TID, CAP 11/19/15 Allergies Allergies: Coded Allergies: No Known Allergy (Unverified , 09/21/16) PMhx/Soc History of Surgery: Yes (EYE SURGERY) Anesthesia Reaction: No Hx Neurological Disorder: No Hx Respiratory Disorders: No Hx Cardiac Disorders: No (HTN, HYPERLIPIDEMIA) Hx Psychiatric Problems: Yes (DEPRESSION, HALLUCINATIONS) Hx Miscellaneous Medical Probl: No Hx Alcohol Use: Yes Hx Substance Use: No Hx Tobacco Use: No Smoking Status: Never smoker Physical Exam Vitals Vital Signs Date Time Temp Pulse Resp B/P Pulse Ox O2 Delivery O2 Flow Rate FiO2 02/10/17 20:24 98.4 101 18 151/102 99 Physical Exam Constitutional:Well-developed. Well-nourished. HEENT:Normocephalic. Atraumatic.Pupils were equal round reactive to light. Moist mucous membranes.No tonsillar exudates. No nasal septal hematoma. No hemotympanum. Neck: No nuchal rigidity. No lymphadenopathy. No posterior cervical spine tenderness or step-offs. Respiratory: Not using accessory muscles of respiration.Lungs were clear to auscultation bilaterally. No rhonchi. No rales. No wheezing. Cardiovascular: Regular rate regular rhythm.No murmurs. No rubs were appreciated.S1, S2 normal. Distal pulses are palpable 2+ bilaterally. GI: Abdomen was soft. Nontender. Non Distended. No pulsatile abdominal masses or bruits. No rebound. No guarding. Bowel sounds were present and normal. Muscle skeletal: Full range of motion of both the upper and lower extremities bilaterally.Normal muscle tone.No assymetrical calf tenderness or swelling. Skin: No petechia, no purpura. No lesions on the palms or the soles of the feet. No maculopapular rash. NEURO: Patient was alert, awake, orientated x3.No facial droop. Gait observed and ataxic..Speech was slurred and patient smelled of alcohol no focal neurological deficits. Result Diagram: 02/10/17204602/10/172046 Results 24 hrs Laboratory Tests Test 02/10/17 20:47 White Blood Count 13.110^3/ul Red Blood Count 4.3010^6/ul Hemoglobin 13.4g/dl Hematocrit 39.5% Mean Corpuscular Volume 91.9fl Mean Corpuscular Hemoglobin 31.2pg Mean Corpuscular Hemoglobin Concent 33.9g/dl Red Cell Distribution Width 14.3% Platelet Count 56726^3/UL Mean Platelet Volume 9.8fl Neutrophils % 61.7% Lymphocytes % 28.7% Monocytes % 4.6% Eosinophils % 2.7% Basophils % 1.8% Nucleated Red Blood Cells % 0.0/100WBC Neutrophils # 8.110^3/ul Lymphocytes # 3.810^3/ul Monocytes # 0.610^3/ul Eosinophils # 0.410^3/ul Basophils # 0.210^3/ul Nucleated Red Blood Cells # 0.010^3/ul Prothrombin Time 12.3Sec Prothrombin Time Ratio 1.0 INR International Normalized Ratio 0.91 Activated Partial Thromboplast Time 29.2Sec Sodium Level 148mmol/L Potassium Level 3.4mmol/L Chloride Level 102mmol/L Carbon Dioxide Level 26mmol/L Anion Gap 23 Blood Urea Nitrogen 16mg/dl Creatinine 0.61mg/dl Glucose Level 106mg/dl Calcium Level 9.8mg/dl Total Bilirubin 0.0mg/dl Direct Bilirubin 0.00mg/dl Indirect Bilirubin 0.0mg/dl Aspartate Amino Transf (AST/SGOT) 100IU/L Alanine Aminotransferase (ALT/SGPT) 68IU/L Alkaline Phosphatase 178IU/L Total Protein 8.7g/dl Albumin 4.8g/dl Globulin 3.90g/dl Albumin/Globulin Ratio 1.23 Salicylates Level < 1.0mg/dl Acetaminophen Level < 10.0ug/ml Ethyl Alcohol Level 381.0mg/dl Current Medications Medications (Trade) Dose Ordered Sig/Jessa Route PRN Reason Start Time Stop Time Status Last Admin Dose Admin Magnesium Sulfate/ Multivitamins/ Thiamine HCl/ Folic Acid/Sodium Chloride (Magnesium Sulfate/Mvi Adult/ Vitamin B1/Folic Acid/NS) 1,015.2 ml @ 500 mls/ hr Q2H2M STAT IV 02/10/17 20:27 02/10/17 22:28 DC 02/10/17 20:59 Procedures/MDM The patient presented to the emergency department with an acute and persistent change in their mental status. The differential diagnosis is diverse however reversible causes such as hypoglycemia, opiate overdose, thiamine deficiency were immediately considered. The patient was placed on a cardiac cath rn, continuous pulse oximetry and IV access was established. The patients airway was secure however hypoxic events such as anemia, shock, or severe pulmonary disease were all considered as etiologies in this patients presentation. Circulation assessed with good cap refill and did not require fluids or pressure support. Finger stick for rapid glucose determined to be normal. Patient serum ethanol was elevated. I did feel the patient's changes in her mental status was a result of acute alcohol intoxication. She had IV access that was established by nursing staff and had been given a banana bag. Nursing staff approached me at 11:50 PM and indicated that the patient had eloped without completion of treatment. Given that she had an IV established a phone call was placed [employer]. Departure Diagnosis: Primary Impression: Alcoholic intoxication Complication of substance-induced condition: uncomplicated Qualified Code: F10.920 - Alcoholic intoxication without complication Condition: Serious CHANTELL MONTANO Feb 10, 2017 23:53
== END 2017-02-10 23:58 | disposition left against medical advice (07) ==
LOC: E/R 20:19
DX: F10.920 Alcohol use, unspecified with intoxication, uncomplicated (principal); R40.2142 Coma scale, eyes open, spontaneous, at arrival to emergency department; R40.2242 Coma scale, best verbal response, confused conversation, at arrival to emergency department; R40.2362 Coma scale, best motor response, obeys commands, at arrival to emergency department; R06.02 Shortness of breath; Z79.82 Long term (current) use of aspirin
CPT/HCPCS: 80053; 80306; 85025; 85610; 85730; 96374; J3411; J3475; J7030; Z7502; Z7610

== ENCOUNTER 2017-03-04 11:37 | Emergency (ER) | payer OTHER ==
[~2017-03-04] VITALS: Ht 154.9 cm; Wt 49.9 kg
[2017-03-04 11:40] VITALS: Ht 154.9 cm; Wt 49.9 kg
[2017-03-04] MEDS ORDERED: DULO20CA17 PO (14:20)
[2017-03-04] MEDS ORDERED: morphine 2 MG INJ IV STA (14:27)
[2017-03-04] MEDS ORDERED: SOD CHLORIDE 0.9% 1,000 ML IV STA (14:27)
[2017-03-04] MEDS ORDERED: ONDANSETRON 4 MG INJ IV STA (14:27)
[2017-03-04] MEDS ORDERED: ASPIRIN 81 MG TAB PO ONE (14:30)
[2017-03-04 14:34] LABS: BASOPHIL # 0.1 10^3/ul (0.0-0.1); BASOPHILS % 0.7 % (0.0-2.0); HEMATOCRIT 37.1 % (37.0-47.0); HEMOGLOBIN 12.7 g/dl (12.0-16.0); LYMPHOCYTES % 9.4 % (15.0-51.0); MEAN CORPUSCULAR HEMOGLOBIN 30.3 pg (29.0-33.0); MEAN CORPUSCULAR HGB CONC 34.2 g/dl (32.0-37.0); MEAN CORPUSCULAR VOLUME 88.5 fl (82.0-101.0); MEAN PLATELET VOLUME 10.7 fl (7.4-10.4); MONOCYTE # 0.7 10^3/ul (0.3-0.9); NEUTROPHIL # 9.1 10^3/ul (1.6-7.5); NEUTROPHILS % 83.4 % (39.0-77.0); PLATELET COUNT 171 10^3/UL (140-415); RED BLOOD COUNT 4.19 10^6/ul (4.20-5.40); RED CELL DISTRIBUTION WIDTH 14.9 % (11.5-14.5)
[2017-03-04 15:00] LABS: ALANINE AMINOTRANSFERASE 54 IU/L (13-69); ALBUMIN 4.8 g/dl (3.3-4.9); ALBUMIN/GLOBULIN RATIO 1.11; ALKALINE PHOSPHATASE 222 IU/L (42-121); ANION GAP 25 (8-16); ASPARTATE AMINO TRANSFERASE 101 IU/L (15-46); BILIRUBIN,INDIRECT 0.7 mg/dl (0-1.1); BILIRUBIN,TOTAL 0.7 mg/dl (0.2-1.3); BLOOD UREA NITROGEN 6 mg/dl (7-20); CALCIUM 9.7 mg/dl (8.4-10.2); CARBON DIOXIDE 25 mmol/L (21-31); CHLORIDE 91 mmol/L (97-110); CREATININE 0.48 mg/dl (0.44-1.00); GLUCOSE 105 mg/dl (70-220); POTASSIUM 3.2 mmol/L (3.5-5.1); SODIUM 138 mmol/L (135-144); TOTAL PROTEIN 9.1 g/dl (6.1-8.1)
[2017-03-04 15:32] LABS: TROPONIN-I < 0.012 ng/ml (0.00-0.12)
[2017-03-04 15:37] LABS: ADD UMIC YES; UR ASCORBIC ACID NEGATIVE (NEGATIVE); UR BACTERIA FEW /HPF (NONE SEEN); UR BILIRUBIN (Dip) 2+ mg/dL (NEGATIVE); UR BLOOD (Dip) NEGATIVE (NEGATIVE); UR CLARITY CLEAR (CLEAR); UR COLOR AMBER (YELLOW); UR GLUCOSE (Dip) NEGATIVE (NEGATIVE); UR KETONES (Dip) 2+ mg/dL (NEGATIVE); UR LEUKOCYTE ESTERASE (Dip) NEGATIVE Leu/ul (NEGATIVE); UR MUCUS MANY /HPF (NONE SEEN); UR NITRITE (Dip) NEGATIVE (NEGATIVE); UR RBC 5 /HPF (0-5); UR SPECIFIC GRAVITY (Dip) 1.027 (1.003-1.030); UR TOTAL PROTEIN (Dip) 2+ mg/dl (NEGATIVE); UR UROBILINOGEN (Dip) 2+ mg/dL (NEGATIVE)
[2017-03-04 16:00] VITALS: BP 165/93; PULSE 91; RESP 20; TEMP 98.3
[2017-03-04] MEDS ORDERED: ONDA4TAB11 PO (17:54)
[2017-03-04] MEDS ORDERED: NITR-58 PO (17:54)
[2017-03-04] MEDS ORDERED: CIPR500T4 PO (17:54)
[2017-03-04] MEDS ORDERED: NAPR-688 PO (17:54)
--- NOTE | 2017-03-04 18:03 | ERD ---
ER Documentation Chief Complaint Chief Complaint VOMITNG SINCE LAST NIGHT HAS A MASON HPI This 56-year-old female presents for vomiting since last night. Also has a mild headache that is currently resolved. Denies any fever and chills. Also had some generalized weakness.. States that she otherwise feels okay. Still does have some nausea. His chest pain and shortness of breath. ROS All systems reviewed and are negative except as per history of present illness. Medications Home Meds Active Scripts Naproxen* (Naproxen*) 500 Mg Tablet, 500 MG PO BID Y for PAIN, #14 TAB Prov:PRADIP SUAREZ DO 03/04/17 Ondansetron (Zofran Odt) 4 Mg Tab.rapdis, 4 MG PO Q6 for NAUSEA AND/OR VOMITING , #20 Prov:ANALIA SUAREZUA DO 03/04/17 Nitrofurantoin Monohyd Macrocr* (Macrobid*) 100 Mg Capsr, 100 MG PO BID for 5 Days, CAP Prov:ERICKPRADIP DO 03/04/17 Ciprofloxacin Hcl* (Ciprofloxacin Hcl*) 500 Mg Tablet, 500 MG PO BID for 5 Days , TAB Prov:PRADIP SUAREZ 03/04/17 Reported Medications Duloxetine Hcl* (Duloxetine Hcl*) 20 Mg Capsule., 20 MG PO DAILY, #30 CAP 03/04/17 Trazodone Hcl* (Trazodone Hcl*) 100 Mg Tablet, 100 MG PO QHS, #30 TAB 11/19/15 Discontinued Reported Medications Ferrous Sulfate* (Ferrous Sulfate*) 325 Mg Tabec, 325 MG PO DAILY, TAB 11/19/15 Fluoxetine Hcl* (Fluoxetine Hcl*) 20 Mg Capsule, 20 MG PO TID, CAP 11/19/15 Discontinued Scripts Ibuprofen* (Motrin*) 600 Mg Tab, 600 MG PO Q8, #30 TAB Prov:GRUPO HOUSER MD 09/21/16 Aspirin* (Aspirin* EC) 81 Mg Tablet., 81 MG PO DAILY for 30 Days, TAB 3 Refills Prov:JUANCARLOS HEIN 07/31/16 Atorvastatin* (Atorvastatin*) 40 Mg Tablet, 40 MG PO QHS for 30 Days, TAB 3 Refills Prov:JUANCARLOS HEIN 07/31/16 Metoprolol Tartrate* (Lopressor*) 25 Mg Tab, 25 MG PO BID for 30 Days, TAB 3 Refills Prov:JUANCARLOS HEIN 07/31/16 Allergies Allergies: Coded Allergies: No Known Allergy (Unverified , 03/04/17) PMhx/Soc History of Surgery: Yes (EYE SURGERY) Anesthesia Reaction: No Hx Neurological Disorder: No Hx Respiratory Disorders: No Hx Cardiac Disorders: No (HTN, HYPERLIPIDEMIA) Hx Psychiatric Problems: Yes (DEPRESSION, HALLUCINATIONS) Hx Miscellaneous Medical Probl: No Hx Alcohol Use: Yes (Daily vodka) Hx Substance Use: No Hx Tobacco Use: No Smoking Status: Never smoker Physical Exam Vitals Vital Signs Date Time Temp Pulse Resp B/P Pulse Ox O2 Delivery O2 Flow Rate FiO2 03/04/17 16:00 98.3 91 20 165/93 94 Room Air 03/04/17 11:40 99.2 116 18 160/100 96 Physical Exam Const: [] No distress Head: Atraumatic Eyes: Normal Conjunctiva ENT: Normal External Ears, Nose and Mouth. Neck: Full range of motion..~ No meningismus. Resp: Clear to auscultation bilaterally Cardio: Regular rate and rhythm, no murmurs Abd: Soft, non tender, non distended. Normal bowel sounds Skin: No petechiae or rashes Ext: No cyanosis, or edema Neur: Awake and alert oriented 3, no focal deficits Psych: Normal Mood and Affect Result Diagram: 03/04/17 1400 03/04/17 1400 Results 24 hrs Laboratory Tests Test 03/04/17 14:00 03/04/17 14:35 03/04/17 15:09 White Blood Count 11.010^3/ul Red Blood Count 4.1910^6/ul Hemoglobin 12.7g/dl Hematocrit 37.1% Mean Corpuscular Volume 88.5fl Mean Corpuscular Hemoglobin 30.3pg Mean Corpuscular Hemoglobin Concent 34.2g/dl Red Cell Distribution Width 14.9% Platelet Count 24806^3/UL Mean Platelet Volume 10.7fl Neutrophils % 83.4% Lymphocytes % 9.4% Monocytes % 6.0% Eosinophils % 0.0% Basophils % 0.7% Nucleated Red Blood Cells % 0.0/100WBC Neutrophils # 9.110^3/ul Lymphocytes # 1.010^3/ul Monocytes # 0.710^3/ul Eosinophils # 0.010^3/ul Basophils # 0.110^3/ul Nucleated Red Blood Cells # 0.010^3/ul Sodium Level 138mmol/L Potassium Level 3.2mmol/L Chloride Level 91mmol/L Carbon Dioxide Level 25mmol/L Anion Gap 25 Blood Urea Nitrogen 6mg/dl Creatinine 0.48mg/dl Glucose Level 105mg/dl Calcium Level 9.7mg/dl Total Bilirubin 0.7mg/dl Direct Bilirubin 0.00mg/dl Indirect Bilirubin 0.7mg/dl Aspartate Amino Transf (AST/SGOT) 101IU/L Alanine Aminotransferase (ALT/SGPT) 54IU/L Alkaline Phosphatase 222IU/L Troponin I < 0.012ng/ml Total Protein 9.1g/dl Albumin 4.8g/dl Globulin 4.30g/dl Albumin/Globulin Ratio 1.11 Urine Color JAYNA Urine Clarity CLEAR Urine pH 6.0 Urine Specific [place] 1.027 Urine Ketones 2+mg/dL Urine Nitrite NEGATIVEmg/dL Urine Bilirubin 2+mg/dL Urine Urobilinogen 2+mg/dL Urine Leukocyte Esterase NEGATIVELeu/ul Urine Microscopic RBC 5/HPF Urine Microscopic WBC 1/HPF Urine Bacteria FEW/HPF Urine Mucus MANY/HPF Urine Hemoglobin NEGATIVEmg/dL Urine Glucose NEGATIVEmg/dL Urine Total Protein 2+mg/dl Lactic Acid Level 1.8mmol/L Current Medications Medications (Trade) Dose Ordered Sig/Jessa Route PRN Reason Start Time Stop Time Status Last Admin Dose Admin Sodium Chloride (NS) 1,000 ml @ 1,000 mls/hr Q1H STAT IV 03/04/17 14:27 03/04/17 15:26 DC 03/04/17 14:52 Morphine Sulfate (morphine) 2 mg ONCE STAT IV 03/04/17 14:27 03/04/17 14:30 DC 03/04/17 14:51 Ondansetron HCl (Zofran Inj) 4 mg ONCE STAT IV 03/04/17 14:27 03/04/17 14:30 DC 03/04/17 14:51 Aspirin (Aspirin) 324 mg ONCE ONCE PO 03/04/17 14:30 03/04/17 14:31 DC 03/04/17 14:51 Procedures/MDM Urinary tract infection with mild hypokalemia and vomiting. No abdominal pain. Intensive cardiac ischemia. Patient was treated with normal saline and given Zofran and aspirin. Symptoms were resolved in the emergency room. Them can have her follow-up with her primary care doctor for hypokalemia. I printed the labs to go with the patient. Discharging with Cipro, Macrobid, Zofran, naproxen. Primary care follow-up in 2 3 days and strict return precautions to the emergency room. EKG interpretation: Sinus tachycardia rate of 106, normal axis, no ST or T-wave changes concerning for acute ischemia. Nonspecific T-wave abnormality. Normal intervals. Abnormal EKG hospital monitor interpretation: Temporary sinus tachycardia followed by normal sinus rhythm without arrhythmias Departure Diagnosis: Primary Impression: Complicated UTI (urinary tract infection) Additional Impression: Vomiting Condition: Stable Patient Instructions: Understanding Urinary Tract Infections (UTIs), Vomiting ( 6Y-Adult) Additional Instructions: Call your primary care doctor TOMORROW for an appointment during the next 2-3 days.See the doctor sooner or return here if your condition worsens before your appointment time. PRADIP SUAREZ DO Mar 04, 2017 18:03
== END 2017-03-04 18:09 | disposition home or self-care (01) ==
LOC: E/R 11:37
DX: N39.0 Urinary tract infection, site not specified (principal); I10 Essential (primary) hypertension; Z79.82 Long term (current) use of aspirin
CPT/HCPCS: 80053; 81001; 83605; 84484; 85025; J2270; J2405; J7030; Z7610; 36415; 93005; 96374; 96375

== ENCOUNTER 2017-06-26 22:23 | Emergency (ER) | END 2017-06-27 02:04 | disposition home or self-care (01) ==

== ENCOUNTER 2017-09-25 23:33 | Emergency (ER) | END 2017-09-26 03:04 | disposition left against medical advice (07) ==

== ENCOUNTER 2017-10-22 16:29 | Inpatient (IN) | END 2017-10-23 19:15 | disposition short-term general hospital (02) | DRG 563 ==

== ENCOUNTER 2017-11-01 17:25 | Emergency (ER) | END 2017-11-01 20:08 | disposition home or self-care (01) ==